=== PATIENT | female | born 1955 | race Hispanic/Latino ===

== ENCOUNTER → 2018-07-21 | Outpatient (CLI) | payer SELFPAY ==
[2018-07-21 15:48] LABS: BASO % 0.5 % (0.0-1.0); EOS # 0.1 10^3/uL (0.0-0.50); EOS % 1.4 % (0.0-3.0); HEMATOCRIT 41.1 % (36.0-47.0); HEMOGLOBIN 13.9 g/dl (12.0-15.5); IMMATURE GRANULOCYTE % 0.2 % (0-3.0); LYMPH # 1.1 10^3/uL (1.5-4.5); LYMPH % 25.1 % (24.0-44.0); MEAN CORPUSCULAR HEMOGLOBIN 28.7 pg (27.0-33.0); MEAN CORPUSCULAR HGB CONC 33.8 g/dl (32.0-36.5); MEAN CORPUSCULAR VOLUME 84.7 fl (80.0-96.0); MONO # 0.3 10^3/uL (0.0-0.8); NEUTROPHILS # 2.9 10^3/uL (1.8-7.7); NEUTROPHILS % 66.8 % (36.0-66.0); PLATELET COUNT, AUTOMATED 149 10^3/uL (150-450); RED BLOOD COUNT 4.85 10^6/uL (4.00-5.40); RED CELL DISTRIBUTION WIDTH 11.8 % (11.5-14.5); WHITE BLOOD COUNT 4.3 10^3/uL (4.0-10.0)
[2018-07-21 16:11] LABS: ESTIMATED AVERAGE GLUCOSE 346 MG/DL (60-110); HEMOGLOBIN A1c 13.7 %
[2018-07-21 17:45] LABS: ALBUMIN 3.4 GM/DL (3.2-5.2); ALBUMIN/GLOBULIN RATIO 0.89 (1.00-1.93); ALKALINE PHOSPHATASE 49 U/L (45-117); ALT/SGPT 25 U/L (12-78); ANION GAP 8 MEQ/L (8-16); AST/SGOT 15 U/L (7-37); BILIRUBIN,TOTAL 0.4 MG/DL (0.2-1.0); BLOOD UREA NITROGEN 16 MG/DL (7-18); CALCIUM LEVEL 9.2 MG/DL (8.8-10.2); CARBON DIOXIDE LEVEL 30 MEQ/L (21-32); CHLORIDE LEVEL 94 MEQ/L (98-107); CHOLESTEROL LEVEL 265 MG/DL (<200); CHOLESTEROL RISK RATIO 3.785 (<5); CREATININE FOR GFR 0.84 MG/DL (0.55-1.30); GLOMERULAR FILTRATION RATE > 60.0 (>45); GLUCOSE, FASTING 571 MG/DL (70-100); HDL CHOLESTEROL 70 MG/DL (>40); LDL CHOLESTEROL 157 MG/DL (<100); NON-HDL-C 195 MG/DL; SODIUM LEVEL 132 MEQ/L (136-145); TOTAL 25(OH) VITAMIN D 25.5 NG/ML (30.0-100.0); TOTAL PROTEIN 7.2 GM/DL (6.4-8.2); TRIGLYCERIDES LEVEL 191 MG/DL (<150); VITAMIN B12 LEVEL > 2000 PG/ML (247-911)
[2018-07-24 14:35] LABS: QuantiFERON-TB Gold Plus Negative (Negative)
== END ==
LOC: M LAB 15:14
DX: Z13.9 Encounter for screening, unspecified (principal); R05 Cough

== ENCOUNTER → 2018-07-21 | Outpatient (CLI) | payer SELFPAY | LOC: M RAD 14:51 | DX: Z12.31 Encounter for screening mammogram for malignant neoplasm of breast (principal); Z78.0 Asymptomatic menopausal state; R05 Cough; Z80.0 Family history of malignant neoplasm of digestive organs ==

== ENCOUNTER 2018-10-13 07:36 | Day surgery (SDC) | payer SELFPAY ==
[~2018-10-13] VITALS: Ht 167.6 cm; Wt 58.1 kg
[~2018-10-13 07:36] MED LIST: GLIP5TAB20 PO; GLUC1000 PO; LIDOCAINE 2% INJ 100 MG/5 ML SDV (FOR ANES.) As Ordered ONE; LIPI20TA PO; PROPOFOL 200 MG/20 ML VIAL As Ordered ONE; TESS100C PO; VITA200016 PO
[2018-10-13] MEDS ORDERED: PROPOFOL 200 MG/20 ML VIAL As Ordered ONE ×2 (08:44→09:18)
--- NOTE | 2018-10-13 09:01 | ROOR ---
Patient Name: Leidy Cisse Procedure Date: 10/13/2018 8:30 AM Date of : 1955 Age: 63 [facility]: [facility] Gender: Female Note Status: Finalized Procedure: Colonoscopy Indications: Screening in patient at increased risk: Colorectal cancer in sister before age 60 Providers: Dimas HERNANDEZ MD Referring MD: Nidia Puckett Requestcelestina Provider: Medicines: Monitored Anesthesia Care Complications: No immediate complications. Procedure: Pre-Anesthesia Assessment: - The heart rate, respiratory rate, oxygen saturations, blood pressure, adequacy of pulmonary ventilation, and response to care were monitored throughout the procedure. The Colonoscope was introduced through the anus and advanced to the cecum, identified by appendiceal orifice and ileocecal valve. The colonoscopy was performed without difficulty. The patient tolerated the procedure well. The quality of the bowel preparation was good. Findings: The perianal and digital rectal examinations were normal. Two sessile and semi-pedunculated polyps were found in the splenic flexure and mid transverse colon. The polyps were 5 to 10 mm in size. These polyps were removed with a cold snare. Resection and retrieval were complete. To prevent bleeding after the polypectomy, two hemostatic clips were successfully placed. There was no bleeding at the end of the procedure. Small Internal Hemorrhoids. The exam was otherwise without abnormality on direct and retroflexion views. Impression: - Two 5 to 10 mm polyps at the splenic flexure and in the mid transverse colon, removed with a cold snare. Resected and retrieved. Clips were placed. - Small Internal Hemorrhoids. - The examination was otherwise normal on direct and retroflexion views. Recommendation: - Repeat colonoscopy in 3 years for surveillance. - Telephone endoscopist for pathology results in 2 weeks. Dimas Hernandez MD Dimas HERNANDEZ MD 10/13/2018 9:01:14 AM This report has been signed electronically. Number of Addenda: 0 Note Initiated On: 10/13/2018 8:30 AM Estimated Blood Loss: Estimated blood loss: none.
[2018-10-13 09:48] VITALS: BP 155/76
== END 2018-10-13 09:49 | disposition home or self-care (01) ==
LOC: M OPP 07:36
PROVIDERS: ATTEND Internal Medicine Gastroenterology
DX: Z80.0 Family history of malignant neoplasm of digestive organs (principal); D12.3 Benign neoplasm of transverse colon; K64.8 Other hemorrhoids; E11.9 Type 2 diabetes mellitus without complications; E78.00 Pure hypercholesterolemia, unspecified; Z79.84 Long term (current) use of oral hypoglycemic drugs; Z79.899 Other long term (current) drug therapy; Z91.018 Allergy to other foods

== ENCOUNTER → 2018-11-05 | Outpatient (CLI) | payer SELFPAY ==
[~2018-11-05] MED LIST changes: -LIDOCAINE 2% INJ 100 MG/5 ML SDV (FOR ANES.) As Ordered ONE; -PROPOFOL 200 MG/20 ML VIAL As Ordered ONE
--- NOTE | 2018-11-05 14:08 | PFTRPT ---
Height: 65.00 Inches Weight: 122.00 Lbs BSA: 1.60 Diagnosis: R05 DATE OF PROCEDURE: 11/05/2018 ORDERED BY: Petty Diaz Spirometry: Pre and post bronchodilator study of excellent technical quality. Forced vital capacity normal. FEV1 out of proportion. Obstructive index is, therefore, reduced. Flow Volume Loop: Expiratory limb of the flow volume loop consistent with flow rate limitation. Suboptimal patient performance of the required maneuvers suspected. Favorable bronchodilator response is identified. Lung Volumes: Total lung capacity normal. Residual volume is in proportion. Diffusing Capacity: Diffusing capacity, although mildly reduced, is appropriate for alveolar volume. Hemoglobin: Hemoglobin acceptable at 12.6. Airway Mechanics: Airway resistance and conductance are normal. IMPRESSION: Cannot rule out some degree of reversible underlying obstructive ventilatory defect, but patient performance of required maneuver hampers data acquisition. Please correlate clinically. MTDD
--- NOTE | 2018-11-06 11:34 | PULFX ---
DATE OF PROCEDURE: 11/05/2018 ORDERED BY: Petty Diaz Pre and postbronchodilator study of excellent technical quality. Forced vital capacity normal. FEV1 out of proportion. Obstructive index is therefore reduced. Expiratory limb of the flow volume loop suggests flow rate limitation. Suboptimal patient performance in other required maneuvers suspected. Favorable bronchodilator response is identified. Total lung capacity is normal. Residual volume is in proportion. Diffusing capacity although mildly reduced, is appropriate for alveolar volume. Hemoglobin acceptable at 12.6. Airways resistance and conductance are normal. IMPRESSION: Cannot rule out some degree of reversible underlying obstructive ventilatory defect, but patient performance with required maneuvers hampers that acquisition. Please correlate clinically.
== END ==
LOC: M CARPUL 11:42
PROVIDERS: ATTEND Nurse Practitioner Family
DX: R05 Cough (principal)

== ENCOUNTER → 2018-12-30 | Outpatient (REF) | payer SELFPAY ==
[2018-12-30 19:11] LABS: BASO % 0.7 % (0.0-1.0); EOS # 0.1 10^3/uL (0.0-0.50); EOS % 2.1 % (0.0-3.0); HEMATOCRIT 31.9 % (36.0-47.0); HEMOGLOBIN 10.9 g/dl (12.0-15.5); LYMPH # 1.3 10^3/uL (1.5-4.5); LYMPH % 30.7 % (24.0-44.0); MEAN CORPUSCULAR HEMOGLOBIN 29.5 pg (27.0-33.0); MEAN CORPUSCULAR HGB CONC 34.2 g/dl (32.0-36.5); MEAN CORPUSCULAR VOLUME 86.2 fl (80.0-96.0); MONO # 0.3 10^3/uL (0.0-0.8); MONO % 7.3 % (0.0-5.0); NEUTROPHILS # 2.6 10^3/uL (1.8-7.7); PLATELET COUNT, AUTOMATED 202 10^3/uL (150-450); WHITE BLOOD COUNT 4.4 10^3/uL (4.0-10.0)
[2018-12-30 19:20] LABS: HEMOGLOBIN A1c 8.6 %
[2018-12-30 19:22] LABS: ALBUMIN 3.3 GM/DL (3.2-5.2); ALT/SGPT 17 U/L (12-78); BILIRUBIN,TOTAL 0.3 MG/DL (0.2-1.0); BLOOD UREA NITROGEN 21 MG/DL (7-18); CALCIUM LEVEL 8.4 MG/DL (8.8-10.2); CARBON DIOXIDE LEVEL 31 MEQ/L (21-32); CHLORIDE LEVEL 104 MEQ/L (98-107); CHOLESTEROL LEVEL 201 MG/DL (<200); CHOLESTEROL RISK RATIO 3.654 (<5); CREATININE FOR GFR 0.67 MG/DL (0.55-1.30); GLOMERULAR FILTRATION RATE > 60.0 (>45); GLUCOSE, FASTING 208 MG/DL (70-100); HDL CHOLESTEROL 55 MG/DL (>40); LDL CHOLESTEROL 97 MG/DL (<100); NON-HDL-C 146 MG/DL; POTASSIUM SERUM 4.6 MEQ/L (3.5-5.1); SODIUM LEVEL 138 MEQ/L (136-145); TOTAL PROTEIN 6.8 GM/DL (6.4-8.2); TRIGLYCERIDES LEVEL 243 MG/DL (<150)
== END ==
LOC: M LAB REF 18:16
PROVIDERS: ATTEND Nurse Practitioner Family
DX: E78.2 Mixed hyperlipidemia (principal); Z13.9 Encounter for screening, unspecified; E11.9 Type 2 diabetes mellitus without complications

== ENCOUNTER 2019-02-19 15:01 | Emergency (ER) | payer SELFPAY ==
[2019-02-19] MEDS ORDERED: METHOCARBAMOL 500 MG TAB PO ONE (17:30)
[2019-02-19] MEDS ORDERED: IBUPROFEN 600 MG TAB PO ONE (17:30)
[2019-02-19 18:02] LABS: HEMATOCRIT 33.6 % (36.0-47.0); HEMOGLOBIN 11.5 g/dl (12.0-15.5); MEAN CORPUSCULAR HEMOGLOBIN 28.6 pg (27.0-33.0); MEAN CORPUSCULAR HGB CONC 34.2 g/dl (32.0-36.5); MEAN CORPUSCULAR VOLUME 83.6 fl (80.0-96.0); PLATELET COUNT, AUTOMATED 208 10^3/uL (150-450); RED BLOOD COUNT 4.02 10^6/uL (4.00-5.40); WHITE BLOOD COUNT 4.6 10^3/uL (4.0-10.0)
--- NOTE | 2019-02-19 18:17 | REP ---
Chest two views HISTORY: Chest pain Comparison: 07/21/2018 The lungs are clear. The heart is normal in size. The pulmonary vasculature is normal in appearance. The bony structure is intact. IMPRESSION: No acute disease. Electronically Signed by Dashawn Olsen MD 02/19/2019 06:08 P
[2019-02-19 18:40] LABS: BLOOD UREA NITROGEN 17 MG/DL (7-18); CALCIUM LEVEL 8.5 MG/DL (8.8-10.2); CARBON DIOXIDE LEVEL 32 MEQ/L (21-32); CHLORIDE LEVEL 100 MEQ/L (98-107); CK-MB VALUE MASS 1.1 NG/ML (<3.6); CPK CREATINE PHOSPHOKINASE 35 U/L (26-192); CREATININE FOR GFR 0.82 MG/DL (0.55-1.30); GLOMERULAR FILTRATION RATE > 60.0 (>45); GLUCOSE, FASTING 425 MG/DL (70-100); MB/CK RELATIVE INDEX 3.14 (< OR =4); POTASSIUM SERUM 4.5 MEQ/L (3.5-5.1); SODIUM LEVEL 137 MEQ/L (136-145); TROPONIN I < 0.02 NG/ML (< 0.10)
[2019-02-19] MEDS ORDERED: ACET650T15 PO (18:57)
[2019-02-19] MEDS ORDERED: ROBA500T PO (18:57)
[2019-02-19 19:06] VITALS: BP 124/63
--- NOTE | 2019-02-20 09:07 | ECGEPIP ---
[facility] - ED Test Date: 2019-02-19 Pat Name: PASHA POMPA Department: Room: - Gender: Female Peer Financial Counselor: FRANKLIN : 1955 Requested By: JUD Chavez PA-C Order Number: [id number] Reading MD: Dimas Gusman Measurements Intervals [place] Rate: 82 P: 14 ID: [id number] QRS: 18 QRSD: 92 T: 19 QT: 361 QTc: 422 Interpretive Statements SINUS RHYTHM Comparison tracing not on file Electronically Signed on 02-20-2019 9:07:27 EDT by Dimas Gusman
== END 2019-02-19 19:36 | disposition home or self-care (01) ==
LOC: M ED 15:01
DX: E11.65 Type 2 diabetes mellitus with hyperglycemia (principal); M62.838 Other muscle spasm; E78.5 Hyperlipidemia, unspecified; Z91.018 Allergy to other foods